=== PATIENT | male | born 1965 | race Asian ===

== ENCOUNTER 2022-08-01 07:43 | Inpatient (IN) | payer OTHER, MEDICAID ==
[~2022-08-01] VITALS: Ht 172.7 cm; Wt 68.9 kg
[2022-08-01 08:32] LABS: BASOPHILS % 0.8 % (0.0-2.0); EOSINOPHILS % 2.6 % (0.0-5.0); HEMATOCRIT. 40.8 % (42.0-52.0); HEMOGLOBIN. 13.6 g/dL (14.0-18.0); LYMPHOCYTES % 13.4 % (20.0-50.0); MEAN CORPUSCULAR HEMOGLOBIN 31.1 pg (28.0-32.0); MEAN CORPUSCULAR VOLUME 93.5 fL (80.0-94.0); MEAN PLATELET VOLUME 7.9 fl (7.4-10.4); MONOCYTES % 4.8 % (2.0-8.0); NEUTROPHILS % 78.4 % (40.0-76.0); PLATELET 274 x1000/uL (130-400); RED BLOOD CELL COUNT 4.37 mill/uL (4.7-6.1); RED CELL DISTRIBUTION WIDTH 13.7 % (11.6-14.6)
[2022-08-01 08:34] LABS: CHLORIDE 106 mEq/L (98-107)
[2022-08-01] MEDS ORDERED: IOHEXOL-350 100 ML BOTTLE ONE (10:06)
[2022-08-01 10:33] LABS: PROTHROMBIN TIME 10.6 sec (9.6-11.0)
[2022-08-01 11:06] LABS: CLARITY URINE CLEAR (CLEAR); COLOR URINE YELLOW (YELLOW); KETONES URINE NEGATIVE (NEGATIVE); LEUKOCYTE ESTERASE URINE NEGATIVE (NEGATIVE); NITRITE URINE NEGATIVE (NEGATIVE); OCCULT BLOOD URINE NEGATIVE (NEGATIVE); PH URINE 7.5 (4.5-8.0); PROTEIN URINE NEGATIVE (NEGATIVE); SPECIFIC GRAVITY URINE 1.056 (1.005-1.030); UROBILINOGEN URINE 0.2 E.U./dL (0.2-1.0)
[2022-08-01] MEDS ORDERED: MAGNESIUM/ALUMINUM HYDROXIDE/SIMETHICONE 30ML UDC PO PRN (11:15)
[2022-08-01] MEDS ORDERED: ACETAMINOPHEN 325MG TABLET PO PRN ×2 (11:15)
[2022-08-01] MEDS ORDERED: ZOLPIDEM TARTRATE 5MG TABLET PO PRN (11:15)
[2022-08-01] MEDS ORDERED: CLONIDINE 0.1MG TABLET PO PRN (11:15)
[2022-08-01] MEDS ORDERED: DOCUSATE SODIUM 100MG CAPSULE PO PRN (11:15)
[2022-08-01] MEDS ORDERED: ONDANSETRON HCL 4MG/2ML INJ IV PRN (11:15)
[2022-08-01] MEDS ORDERED: GUAIFENESIN 200MG/10ML SUGAR FREE UDC PO PRN (11:15)
[2022-08-01] MEDS ORDERED: IPRATROPIUM/ALBUTEROL 0.5-3(2.5)MG/3ML NEB NEB PRN (11:15)
[2022-08-01 12:00] VITALS: BP 129/74
[2022-08-01 13:49] VITALS: BP 129/74
[2022-08-01] MEDS: ENOXAPARIN 40MG/0.4ML SYR SUBCUT SCH (14:52)
[2022-08-01] MEDS ORDERED: ALBUTEROL (0.083%) 2.5MG/3ML NEB HHN PRN (15:30)
[2022-08-01] MEDS ORDERED: IPRATROPIUM BROMIDE (0.02%) 0.5MG/2.5ML NEB HHN PRN (15:30)
[2022-08-01 19:53] LABS: ETHANOL BLOOD < 10 mg/dL; HDL CHOLESTEROL 73 mg/dL (40-59); LDL CHOLESTEROL 87 mg/dL (5-100); T4 FREE 1.12 ng/dL (0.76-1.46); TOTAL IRON BINDING CAPACITY 353 ug/dL (250-450)
[2022-08-01 20:00] VITALS: BP 99/60
[2022-08-01 20:26] LABS: VITAMIN B12 SERUM 313 pg/mL (211-911)
[2022-08-01 21:23] LABS: CREATINE KINASE 112 IU/L (39-308); CREATINE KINASE MB FRACTION 1.1 ng/mL (0.5-3.6)
[2022-08-01] MEDS: FAMOTIDINE 20MG TABLET PO SCH (22:09)
[2022-08-02 02:10] LABS: CREATINE KINASE 100 IU/L (39-308); CREATINE KINASE MB FRACTION 1.1 ng/mL (0.5-3.6)
[2022-08-02 04:00] VITALS: BP 123/71
[2022-08-02 07:36] LABS: EOSINOPHILS % 3.6 % (0.0-5.0); HEMATOCRIT. 41.4 % (42.0-52.0); LYMPHOCYTES % 28.7 % (20.0-50.0); MEAN CORPUSCULAR HEMOGLOBIN 31.4 pg (28.0-32.0); MEAN CORPUSCULAR VOLUME 92.7 fL (80.0-94.0); MONOCYTES % 8.2 % (2.0-8.0); NEUTROPHILS % 58.5 % (40.0-76.0); PLATELET 261 x1000/uL (130-400); RED BLOOD CELL COUNT 4.47 mill/uL (4.7-6.1); RED CELL DISTRIBUTION WIDTH 13.7 % (11.6-14.6)
[2022-08-02 08:46] LABS: CHLORIDE 105 mEq/L (98-107)
[2022-08-02] MEDS: FAMOTIDINE 20MG TABLET PO SCH ×2 (08:47→20:59)
[2022-08-02] MEDS: CLOPIDOGREL 75MG TABLET PO SCH (08:47)
[2022-08-02 08:54] LABS: PHOSPHORUS 3.3 mg/dL (2.5-4.9)
[2022-08-02] MEDS ORDERED: ASPIRIN 325MG EC TABLET PO SCH (09:00)
[2022-08-02 12:00] VITALS: BP 96/69
[2022-08-02] MEDS: ENOXAPARIN 40MG/0.4ML SYR SUBCUT SCH (14:53)
[2022-08-02] MEDS: CYANOCOBALAMIN 1000MCG/ML VIAL IM SCH (14:53)
[2022-08-02 16:00] VITALS: BP 99/67
[2022-08-02 20:00] VITALS: BP 108/56
[2022-08-02] MEDS ORDERED: ATORVASTATIN CALCIUM 10MG TABLET PO SCH (21:00)
[2022-08-03] VITALS: BP 104/66
[2022-08-03 04:00] VITALS: BP 122/75
[2022-08-03 08:00] VITALS: BP 104/60
[2022-08-03] MEDS: CLOPIDOGREL 75MG TABLET PO SCH (08:40)
[2022-08-03] MEDS: FAMOTIDINE 20MG TABLET PO SCH (08:40)
[2022-08-03] MEDS: CYANOCOBALAMIN 1000MCG/ML VIAL IM SCH (08:40)
[2022-08-03] MEDS ORDERED: FAMO20TA8 PO (09:10)
[2022-08-03] MEDS ORDERED: CLOP75TA15 PO (09:10)
[2022-08-03] MEDS ORDERED: ATOR10TA PO (09:10)
[2022-08-03 12:00] VITALS: BP 102/64
[2022-08-03 12:06] VITALS: BP 102/64
== END 2022-08-03 15:10 | disposition home or self-care (01) | DRG 45 ==
LOC: ER 07:43 → EDBEDREQTM 09:04 → EDBEDREQSVC 09:04 → EDBEDREQ 09:04 → 7EST 10:29 → EDBEDREQTM 10:54 → EDBEDREQ 10:54
PROVIDERS: ADMIT Internal Medicine; ATTEND Internal Medicine
DX: I63.9 Cerebral infarction, unspecified (principal); E83.51 Hypocalcemia; D64.9 Anemia, unspecified; G81.94 Hemiplegia, unspecified affecting left nondominant side; R29.703 NIHSS score 3; E53.8 Deficiency of other specified B group vitamins; R73.9 Hyperglycemia, unspecified; R74.01 Elevation of levels of liver transaminase levels; R53.81 Other malaise; R47.1 Dysarthria and anarthria
CPT/HCPCS: 36415; 70496; 70498; 70551; 71045; 80053; 80061; 80320; 81003; 82550; 82553; 82607; 82746; 82962; 83036; 83540; 83550; 83735; 83880; 84100; 84439; 84443; 84484; 85025; 86850; 86900; 92610; 93005; 93970; 97162; 97166; 99291; J1650; J3420; Q9967; G0480